=== PATIENT | male | born 1945 | race Caucasian/White ===

== ENCOUNTER 2020-03-18 05:59 | Inpatient (IN) | payer OTHER ==
[~2020-03-18] VITALS: Ht 172.7 cm; Wt 95.7 kg
[2020-03-18] MEDS ORDERED: NITROGLYCERIN 1GM OINT 1 INCH/1GM TD ONE (06:19)
[2020-03-18 06:22] LABS: BASOPHILS % (AUTO) 0.8 % (0.0-5.0); EOSINOPHILS % (AUTO) 3.3 % (0.0-8.0); HEMATOCRIT 40.1 % (42-54); LYMPHOCYTES % (AUTO) 21.7 % (21.0-51.0); MEAN CORPUSCULAR HEMOGLOBIN 30.6 pg (27.0-33.0); MEAN CORPUSCULAR HGB CONC 32.9 g/dL (32.0-36.0); MONOCYTES % (AUTO) 11.2 % (3.0-13.0); NEUTROPHILS % (AUTO) 62.7 % (40.0-77.0); PLATELET COUNT (AUTO) 177 K/uL (130-400); RED BLOOD CELL COUNT(AUTO) 4.31 MIL/uL (4.50-6.20); RED CELL DISTRIBUTION WIDTH 13.7 % (11.0-15.5); WHITE BLOOD COUNT (AUTO) 6.1 K/uL (4.8-10.8)
[2020-03-18 06:36] LABS: ALBUMIN 4.1 g/dL (3.5-5.0); CREATININE 1.1 mg/dL (0.5-1.5); TOTAL PROTEIN, SERUM 7.3 g/dL (6.0-8.3)
[2020-03-18] MEDS ORDERED: HEPARIN 5,000 UNIT VIAL ONE (07:20)
[2020-03-18] MEDS ORDERED: HEPARIN 25,000 UNITS/250ML D5W 250 ML IV ONE ×2 (07:21→19:09)
[2020-03-18 08:00] LABS: LACTATE DEHYDROGENASE 220 U/L (81-234)
[2020-03-18 08:10] LABS: CRP QUANTITATIVE < 2.00 mg/L (0.00-9.0)
[2020-03-18] MEDS: FUROSEMIDE 20MG VIAL IV SCH ×2 (08:15→20:15)
[2020-03-18] MEDS ORDERED: NITROGLYCERIN 0.4 MG SL TAB SL PRN (08:15)
[2020-03-18 08:18] LABS: INR 0.97 (0.85-1.15); PROTHROMBIN TIME 10.6 SEC (9.6-11.6)
[2020-03-18 08:19] LABS: PARTIAL THROMBOPLASTIN TIME 27.1 SEC (26.3-35.5)
[2020-03-18 08:36] LABS: MAGNESIUM 1.9 mg/dL (1.80-2.40); THYROID STIMULATING HORMONE 4.11 uIU/mL (0.36-3.74)
[2020-03-18] MEDS: ASPIRIN 81MG CHEW TAB PO SCH (09:00)
[2020-03-18] MEDS: FOLIC ACID 5 MG/ML VIAL IV SCH (09:00)
[2020-03-18] MEDS ORDERED: MORPHINE 4 MG SYG IV PRN (09:00)
[2020-03-18] MEDS: CYANOCOBALAMIN (VITAMIN B-12) 100 MCG TABLET PO SCH (09:00)
[2020-03-18] MEDS: PANTOPRAZOLE 40 MG TAB DR PO SCH (09:00)
[2020-03-18] MEDS: THIAMINE HCL 100 MG/ML 2ML VIAL IVP SCH (09:00)
[2020-03-18] MEDS ORDERED: CHLORDIAZEPOXIDE HCL 25 MG CAP PO PRN (09:15)
[2020-03-18] MEDS ORDERED: PHARMACY COMMUNICATION MISC PRN (09:15)
[2020-03-18] MEDS ORDERED: PANTOPRAZOLE 40 MG TAB DR ONE (09:21)
[2020-03-18] MEDS ORDERED: THIAMINE HCL 100 MG/ML 2ML VIAL ONE (09:21)
[2020-03-18] MEDS ORDERED: FUROSEMIDE 20MG VIAL ONE (09:21)
[2020-03-18] MEDS ORDERED: ASPIRIN 81MG CHEW TAB ONE (09:21)
[2020-03-18] MEDS ORDERED: CYANOCOBALAMIN (VITAMIN B-12) 1,000 MCG TABLET ONE (09:22)
[2020-03-18] MEDS ORDERED: FOLIC ACID 1 MG TABLET ONE (09:22)
[2020-03-18] MEDS ORDERED: TAMSULOSIN HCL 0.4 MG CAP.ER.24H ONE (09:25)
[2020-03-18 14:12] LABS: INR 1.04 (0.85-1.15); PROTHROMBIN TIME 11.3 SEC (9.6-11.6)
[2020-03-18 14:31] LABS: PARTIAL THROMBOPLASTIN TIME 43.6 SEC (26.3-35.5)
[2020-03-18] MEDS: METOPROLOL TARTRATE 25 MG TAB PO SCH ×2 (15:45→21:00)
[2020-03-18] MEDS ORDERED: CLOPIDOGREL 300MG TAB PO STA (17:02)
[2020-03-18] MEDS ORDERED: METOPROLOL TARTRATE 25 MG TAB ONE (17:17)
[2020-03-18] MEDS ORDERED: CLOPIDOGREL 300MG TAB ONE (18:13)
[2020-03-18 20:27] LABS: INR 1.08 (0.85-1.15); PROTHROMBIN TIME 11.7 SEC (9.6-11.6)
[2020-03-18] MEDS ORDERED: ATORVASTATIN 40 MG TABLET PO SCH ×2 (21:00)
[2020-03-18] MEDS ORDERED: ATORVASTATIN 40 MG TABLET ONE (21:33)
[2020-03-18 22:35] VITALS: BP 143/80
[2020-03-19] VITALS (13 sets, daily range): BP systolic 122–165; BP diastolic 78–100
[2020-03-19] MEDS ORDERED: OMEP-420 PO (02:21)
[2020-03-19] MEDS ORDERED: TAMS-1 PO (02:21)
[2020-03-19] MEDS ORDERED: ACET-3194 PO (02:21)
[2020-03-19] MEDS ORDERED: SIMV-46 PO (02:21)
[2020-03-19] MEDS ORDERED: BETA1TAB20 PO (02:21)
[2020-03-19] MEDS ORDERED: [UNRECOGNIZED DRUG - OTHER] (02:21)
[2020-03-19 06:23] LABS: BASOPHILS % (AUTO) 0.7 % (0.0-5.0); EOSINOPHILS % (AUTO) 2.4 % (0.0-8.0); HEMATOCRIT 36.7 % (42-54); LYMPHOCYTES % (AUTO) 17.2 % (21.0-51.0); MEAN CORPUSCULAR HEMOGLOBIN 30.7 pg (27.0-33.0); MEAN CORPUSCULAR HGB CONC 33.2 g/dL (32.0-36.0); MEAN CORPUSCULAR VOLUME 92.2 fL (79-99); MONOCYTES % (AUTO) 12.3 % (3.0-13.0); NEUTROPHILS % (AUTO) 67.1 % (40.0-77.0); PLATELET COUNT (AUTO) 175 K/uL (130-400); RED BLOOD CELL COUNT(AUTO) 3.98 MIL/uL (4.50-6.20); RED CELL DISTRIBUTION WIDTH 13.6 % (11.0-15.5); WHITE BLOOD COUNT (AUTO) 7.2 K/uL (4.8-10.8)
[2020-03-19 06:43] LABS: ALBUMIN 3.6 g/dL (3.5-5.0); BILIRUBIN,TOTAL 1.2 mg/dL (0.2-1.0); CREATININE 0.8 mg/dL (0.5-1.5); MAGNESIUM 1.9 mg/dL (1.80-2.40); POTASSIUM 3.7 mmol/L (3.5-5.1); TOTAL PROTEIN, SERUM 6.6 g/dL (6.0-8.3)
[2020-03-19] MEDS ORDERED: IOHEXOL 350 MG/ML 100ML INFUS..BTL IV ONE (07:10)
[2020-03-19] MEDS ORDERED: NITROGLYCERIN 2 MG VIAL IV ONE (07:10)
[2020-03-19] MEDS ORDERED: IOHEXOL-350 50ML VIAL IV ONE (07:11)
[2020-03-19] MEDS ORDERED: LIDOCAINE HCL 400MG/20ML VIAL ONE (07:37)
[2020-03-19] MEDS ORDERED: HEPARIN 10,000 UNIT/10ML (1,000 UNIT/ML) VIAL ONE (07:38)
[2020-03-19] MEDS ORDERED: NICARDIPINE 25MG INJ IV ONE (07:38)
[2020-03-19] MEDS ORDERED: MIDAZOLAM HCL 1 MG/ML 2ML VIAL ONE (07:46)
[2020-03-19] MEDS ORDERED: FENTANYL CITRATE PF 50 MCG/1 ML 2ML VIAL ONE (07:46)
[2020-03-19] MEDS: FUROSEMIDE 20MG VIAL IV SCH (08:15)
[2020-03-19] MEDS: THIAMINE HCL 100 MG/ML 2ML VIAL IVP SCH (09:00)
[2020-03-19] MEDS: FOLIC ACID 5 MG/ML VIAL IV SCH (09:00)
[2020-03-19] MEDS: ASPIRIN 81MG CHEW TAB PO SCH (09:00)
[2020-03-19] MEDS: CYANOCOBALAMIN (VITAMIN B-12) 100 MCG TABLET PO SCH (09:00)
[2020-03-19] MEDS ORDERED: CLOPIDOGREL 75MG TAB PO SCH (09:00)
[2020-03-19] MEDS: PANTOPRAZOLE 40 MG TAB DR PO SCH (09:00)
[2020-03-19] MEDS ORDERED: TAMSULOSIN HCL 0.4 MG CAP.ER.24H PO SCH (09:00)
[2020-03-19] MEDS: METOPROLOL TARTRATE 25 MG TAB PO SCH (09:00)
== END 2020-03-19 18:55 | disposition short-term general hospital (02) | DRG 280 ==
LOC: EDH 05:59 → EDHIP 06:00 → 4CH 21:09
PROVIDERS: ADMIT Internal Medicine; ATTEND Internal Medicine
PROC: 4A023N7 Measurement of Cardiac Sampling and Pressure, Left Heart, Percutaneous Approach (ICD-10-PCS; principal; 2020-03-19)
PROC: B211YZZ Fluoroscopy of Multiple Coronary Arteries using Other Contrast (ICD-10-PCS; 2020-03-19)
DX: I21.4 Non-ST elevation (NSTEMI) myocardial infarction (principal); J96.01 Acute respiratory failure with hypoxia; J98.11 Atelectasis; Z20.822 Contact with and (suspected) exposure to COVID-19; Z88.8 Allergy status to other drugs, medicaments and biological substances; Z79.899 Other long term (current) drug therapy; Z87.891 Personal history of nicotine dependence; Z86.16 Personal history of COVID-19; N40.0 Benign prostatic hyperplasia without lower urinary tract symptoms; M19.90 Unspecified osteoarthritis, unspecified site; Z85.46 Personal history of malignant neoplasm of prostate; I25.10 Atherosclerotic heart disease of native coronary artery without angina pectoris; R73.03 Prediabetes; Z82.49 Family history of ischemic heart disease and other diseases of the circulatory system; Z87.01 Personal history of pneumonia (recurrent); E78.5 Hyperlipidemia, unspecified; E66.9 Obesity, unspecified
CPT/HCPCS: 36415; 71045; 71250; 80053; 80061; 82728; 83036; 83615; 83735; 83880; 84145; 84443; 84484; 85025; 85347; 85378; 85610; 85730; 86140; 87426; 93005; 93458; 93880; 94010; 99156; 99157; G0378; J1644; J1940; J2250; J3010; J3411; J3490; Q9967; U0003

== ENCOUNTER → 2020-04-12 | Outpatient (CLI) | payer OTHER ==
[~2020-04-12] MED LIST: ACET-3194 PO; BETA1TAB20 PO; OMEP-420 PO; SIMV-46 PO; TAMS-1 PO; [UNRECOGNIZED DRUG - OTHER]
== END | disposition home or self-care (01) ==
LOC: RAH 11:10
PROVIDERS: ATTEND Internal Medicine
DX: R60.9 Edema, unspecified (principal)
CPT/HCPCS: 93971